=== PATIENT | female | born 2000 | race Two or more races ===

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

== ENCOUNTER 2018-03-24 12:45 | Emergency (ER) | payer OTHER ==
[~2018-03-24] VITALS: Ht 149.9 cm; Wt 42.5 kg
[~2018-03-24 12:45] MED LIST: ACET500C5 PO; FAMO-96 PO; ONDA4TAB14 PO
[2018-03-24 12:56] VITALS: BP 93/58; PULSE 101; Ht 149.9 cm; Wt 42.5 kg
[2018-03-24] MEDS ORDERED: NAPR-985 PO (15:25)
[2018-03-24 15:35] VITALS: RESP 18
--- NOTE | 2018-03-24 15:53 | ERD ---
ER Documentation Chief Complaint Chief Complaint BACK PAIN 1WK AGO, LESS TODAY, DENIES PAINFUL URINATION HPI 17-year-old female presenting with back pain. Patient denies any numbness or ti ngling. She denies any recent falls. Denies any abdominal pain. No fevers. No vomiting. Took ibuprofen with mild alleviation. It hurts more with movement. Denies medical problems. NKDA. Surgical history denies. LNMP March 04 ROS All systems reviewed and are negative except as per history of present illness. Medications Home Meds Active Scripts Naproxen* (Naprosyn*) 500 Mg Tablet, 500 MG PO BID PRN for PAIN AND/OR INFLAMMATION, #30 TAB Prov:NIDA LFETCHER PA-C 03/24/18 Acetaminophen* (Tylophen*) 500 Mg Capsule, 1 CAP PO Q6H PRN for PAIN AND OR ELEVATED TEMP, #15 CAP Prov:JOSE SWARTZ MD 11/19/16 Famotidine* (Pepcid*) 20 Mg Tablet, 20 MG PO BID for 10 Days, #20 TAB Prov:JOSE SWARTZ MD 11/19/16 Ondansetron (Ondansetron Odt) 4 Mg Tab.rapdis, 4 MG PO Q6H PRN for NAUSEA AND/OR VOMITING, #8 TAB Prov:JOSE SWARTZ MD 11/19/16 Allergies Allergies: Coded Allergies: No Known Allergy (Unverified , 11/19/16) PMhx/Soc Hx Alcohol Use: No Hx Substance Use: No Hx Tobacco Use: No Smoking Status: Never smoker FmHx Family History: No diabetes, No coronary disease, No other Physical Exam Vitals Vital Signs Date Temp Pulse Resp B/P (MAP) Pulse Ox O2 O2 Flow FiO2 Time Delivery Rate 03/24/18 98.3 18 98 Room Air 15:35 03/24/18 98.1 101 18 93/58 (70) 98 12:56 Physical Exam GENERAL: The patient is well-appearing, well-nourished, in no acute distress CHEST: Clear to auscultation bilaterally. There are no rales, wheezes or rhonchi. HEART: Regular rate and rhythm. No murmurs, clicks, rubs or gallops. ABDOMEN:Soft, nontender and nondistended. Good bowel sounds. No rebound or guarding. No gross peritonitis. No gross organomegaly or masses. No Hernandez sign or McBurney point tenderness. BACK: No midline or flank tenderness. No CVA tenderness mild tenderness palpation along paraspinous muscles of the lumbar region extending into the thoracic region. No crepitus. EXTREMITIES: Equal pulses bilaterally. There is no peripheral clubbing, cyanosis or edema. No focal swelling or erythema. Full range of motion. Grossly neurovascularly intact. NEUROLOGIC: Alert and oriented. Cranial nerves II through XII intact. Motor strength in all 4 extremities with 5 out of 5 strength. Sensation grossly intact. Normal speech and gait. Babinski negative. DTR 2+ throughout. SKIN: There is no apparent rash or petechiae. The skin is warm and dry. Results 24 hrs Laboratory Tests Test 03/24/18 13:43 03/24/18 14:07 Bedside Urine pH (LAB) 6.0 Bedside Urine Protein (LAB) Negative Bedside Urine Glucose (UA) Negative Bedside Urine Ketones (LAB) Negative Bedside Urine Blood Trace-intact Bedside Urine Nitrite (LAB) Negative Bedside Urine Leukocyte Esterase (L Negative POC Beta HCG, Qualitative NEGATIVE Procedures/MDM DIAGNOSTIC IMAGING REPORT Patient: PABLO CALLE : 2000 Age: 17 Sex: F MR #: [id number] DOS: 03/24/18 1330 Ordering MD: VARSHA FLETCHER PA-C Location: [facility] Room/Bed: PROCEDURE: XR Lumbar Spine. CLINICAL INDICATION: pain TECHNIQUE: AP, and lateral view of the lumbar spine were obtained. COMPARISON: No prior studies are available for comparison. FINDINGS: There is normal vertebral mineralization and alignment. No fracture or subluxation is seen. The disc spaces are normal in appearance. The posterior elements are unremarkable. The soft tissues appear normal. IMPRESSION: Unremarkable lumbar spine. DIAGNOSTIC IMAGING REPORT Patient: PABLO CALLE : 2000 Age: 17 Sex: F MR #: [id number] DOS: 03/24/18 1330 Ordering MD: VARSHA FLETCHER PA-C Location: [facility] Room/Bed: PROCEDURE: XR thoracic Spine. CLINICAL INDICATION: pain TECHNIQUE: AP, lateral views of the thoracic spine were obtained. COMPARISON: No prior studies are available for comparison. FINDINGS: There is normal vertebral mineralization and alignment. No acute fracture or subluxation is seen. The disc spaces are normal in appearance. The posterior elements are unremarkable. The soft tissues appear normal. IMPRESSION: Unremarkable thoracic spine. MDM: 17-year-old female presenting with back pain. I have low suspicion for acute fracture dislocation. I have low suspicion for neuro deficit. I have low suspicion for bony injury. Patient likely has muscular skeletal strain. She is discharged with supportive medications and told to follow-up with primary care within 1-2 days for close evaluation. Patient is told if symptoms change or worsen to immediately return to the ER. All questions answered at discharge Departure Diagnosis: Primary Impression: Back pain Condition: Stable Patient Instructions: Back Pain (Acute Or Chronic) Referrals: [facility] YOU HAVE RECEIVED A MEDICAL SCREENING EXAM AND THE RESULTS INDICATE THAT YOU DO NOT HAVE A CONDITION THAT REQUIRES URGENT TREATMENT IN THE EMERGENCY DEPARTMENT. FURTHER EVALUATION AND TREATMENT OF YOUR CONDITION CAN WAIT UNTIL YOU ARE SEEN IN YOUR DOCTORS OFFICE WITHIN THE NEXT 1-2 DAYS. IT IS YOUR RESPONSIBILITY TO MAKE AN APPOINTMENT FOR FOLOW-UP CARE. IF YOU HAVE A PRIMARY DOCTOR --you should call your primary doctor and schedule an appointment IF YOU DO NOT HAVE A PRIMARY DOCTOR YOU CAN CALL OUR PHYSICIAN REFERRAL HOTLINE AT IF YOU CAN NOT AFFORD TO SEE A PHYSICIAN YOU CAN CHOSE FROM THE FOLLOWING [facility] CLINICS [facility] [address] [facility]. [facility] [address] [facility] [facility] [address] [facility] [facility] [address] [facility]. [facility] [address] [facility]. [facility] [address] Additional Instructions: FOLLOW UP WITH YOUR PRIMARY CARE PHYSICIAN TOMORROW.Return to this facility if you are not improving as expected. NIDA FLETCHER PA-C Mar 24, 2018 15:53
== END 2018-03-24 15:36 | disposition home or self-care (01) ==
LOC: FTE 12:45
DX: M54.9 Dorsalgia, unspecified (principal)
CPT/HCPCS: 72072; 72100; 81003; 81025; Z7502